=== PATIENT | female | born 1935 | race Caucasian/White ===

== ENCOUNTER 2018-04-23 07:55 | Emergency (ER) | payer MEDICARE ==
[~2018-04-23] VITALS: Ht 157.5 cm; Wt 56.7 kg
[~2018-04-23 07:55] MED LIST: ACETAMINOPHEN-1 EAC1 PO; ADVAIR 250-501 EACH IH; ALBUTEROL SULFATE; ALBUTEROL2.5 MG/31 IH; ALLER TEC PO; ALLERGY10 M1; AMLODIPINE BESYL5 MG; AMLODIPINE BESYL5 MG PO; B12 5,000 MCG1 EACH; BENADRYL25 MG; BENTYL 10 MG CA10 MG; BENTYL 10 MG CA10 MG PO; BENTYL10 MG PO; CALCIUM; CALCIUM 600 +1 EAC1 PO; CALCIUM 600+D1 EAC3 PO; CARAFATE 1 GM TA1 G1 PO; CELEXA20 MG PO; CENTRUM COMPLE1 EACH PO; CENTRUM TABLET1 EACH PO; CIPRO250 MG PO; CLARITIN10 MG PO; COLACE100 MG PO; DOXEPIN 10 MG C10 MG PO; FLAGYL500 MG PO; FLONASE 0.05%50 MCG INH; FLORANEX TABLE1 EACH PO; FLOVENT; KLONOPIN1 MG PO; KLOR-CON 10 ER10 MEQ; LEXAPRO 10 MG T10 M1 PO; LEXAPRO 10 MG T10 MG PO; LEXAPRO20 MG PO; LISINOPRIL5 MG PO; MACROBID 100 M100 M1; MACRODANTIN100 MG PO; METAMUCIL PAC1 UDPKT PO; MIRALAX255 GM PO; MYLAN; NASONEX17 GM NS; NEXIUM10 MG PO; NEXIUM40 MG; NEXIUM40 MG PO; NORCO 5-325 TA1 EACH PO; NORVASC 5 MG TAB5 MG; NORVASC 5 MG TAB5 MG PO; ONDANSETRON HCL4 M2 PO; OPCON-A EYE DRO15 M1; PANTOPRAZOLE SO40 M1 PO; PAROXETINE HCL10 MG; PHENERGAN 25 MG25 M1 PO; POTASSIUM; POTASSIUM GLUCONATE; POTASSIUM99 M1 PO; PREDNISONE50 MG PO; PROAIR HFA8.5 GM INH; PROBIOTIC ACID1 EACH PO; PROBIOTIC1 EAC1 PO; PROLIA60 MG/1 ML SQ; RANITIDINE 150150 MG; REMERON15 MG PO; SENNA PO; TRIAMTERENE-HC1 EAC1 PO; TRIAMTERENE/HCT1 CA1; TYLENOL325 MG PO; VENTOLIN HFA 1818 GM INH; VENTOLIN17 GM INH; VICODIN ES TAB1 EACH; VICODIN ES TAB1 EACH PO; VITAMIN B-12; VITAMIN B-12100 MCG PO; VITAMIN B-12500 MCG PO; VITAMIN B12 PO; VITAMIN D1000 UNI1 PO; VITAMIN D31000 UNI2 PO; XARELTO10 MG PO; ZANTAC 150MG T150 M1 PO; ZOFRAN4 MG PO; ZYRTEC PO; [UNRECOGNIZED DRUG - OTHER]; [UNRECOGNIZED DRUG - OTHER] NASAL
[2018-04-23] MEDS ORDERED: OMEPRAZOLE40 MG PO (08:10)
[2018-04-23] MEDS ORDERED: NORVASC5 MG PO (08:10)
[2018-04-23] MEDS ORDERED: PROZAC20 MG PO (08:11)
[2018-04-23] MEDS ORDERED: HYDROXYZINE HCL25 M1 PO (08:11)
[2018-04-23 08:47] LABS: ABSOLUTE BASOPHILS 0.1 thou/uL (0.0-0.2); ABSOLUTE EOSINOPHILS 0.1 thou/uL (0.0-0.7); ABSOLUTE LYMPHOCYTES 2.3 thou/uL (0.8-5.3); ABSOLUTE MONOCYTES 0.4 thou/uL (0.0-1.2); ABSOLUTE NEUTROPHILS 2.7 thou/uL (1.6-8.1); BASOPHILS 1.2 %; EOSINOPHILS 1.9 %; HEMATOCRIT 42.9 % (37.0-47.0); HEMOGLOBIN 14.2 gm/dL (12.0-15.0); LYMPHOCYTES 40.8 %; MCH 29.3 pg (26.0-34.0); MCHC 33.1 g/dL (28.0-37.0); MCV 88.5 fL (80.0-100.0); MONOCYTES 7.8 %; MPV 7.9 fl. (7.2-11.1); NUCLEATED RBCS 0 /100WBC; PLATELET COUNT* 250 thou/uL (150-400); POLYS 48.3 %; RBC 4.85 mil/uL (4.20-5.00); RDW-CV 14.5 % (10.5-14.5); WBC 5.5 thou/uL (4.0-11.0)
[2018-04-23 08:49] LABS: ANION GAP 5 mmol/L (7-16); BUN 16 mg/dL (7-18); CALCIUM 9.2 mg/dL (8.5-10.1); CHLORIDE 100 mmol/L (98-107); CO2 30 mmol/L (21-32); CREATININE 0.9 mg/dL (0.6-1.3); GLUCOSE 109 mg/dL (70-99); POTASSIUM 3.9 mmol/L (3.5-5.1); SODIUM 135 mmol/L (136-145)
[2018-04-23 08:52] LABS: APTT 26.6 Seconds (25.0-31.3); PROTIME 10.3 Seconds (9.20-11.50)
[2018-04-23 08:56] LABS: ALBUMIN 3.8 g/dL (3.4-5.0); ALKALINE PHOSPHATASE 86 U/L (46-116); LIPASE 132 U/L (73-393); SGOT 20 U/L (15-37); SGPT 22 U/L (30-65); TOTAL BILIRUBIN 0.5 mg/dL (<0.1-1.0); TOTAL PROTEIN 7.6 g/dL (6.4-8.2); TROPONIN-I LEVEL <0.06 ng/mL (<0.06)
[2018-04-23 09:23] LABS: URINE BILIRUBIN NEGATIVE (Negative); URINE BLOOD NEGATIVE (Negative); URINE CLARITY CLEAR; URINE COLOR YELLOW; URINE GLUCOSE-RANDOM NEGATIVE (Negative); URINE KETONES NEGATIVE (Negative); URINE LEUKOCYTES-REFLEX TRACE (Negative); URINE NITRITE-REFLEX NEGATIVE (Negative); URINE PROTEIN NEGATIVE (Negative); URINE SPECIFIC GRAVITY 1.015 (1.005-1.030); URINE UROBILINOGEN 0.2 E.U./dl (0.2-1.0)
[2018-04-23 09:32] LABS: SQUAMOUS 4-10 Moderate /LPF (0-3)
[2018-04-23 09:34] LABS: URINE RBC 0-2 Rare /HPF (0-2); URINE WBC-REFLEX 0-5 Rare /HPF (0-5)
[2018-04-23 09:35] LABS: MUCUS 0-3 Light strn/LPF (None Seen)
[2018-04-23 09:38] LABS: CASTS None Seen /LPF (None Seen); CRYSTALS None Seen /LPF (None Seen)
[2018-04-23] MEDS ORDERED: ZOFRAN ODT4 MG SUBLING (09:47)
[2018-04-23 09:57] VITALS: BP 159/60
--- NOTE | 2018-04-23 12:19 | EKG ---
[place] [address] ELECTROCARDIOGRAM REPORT Name: NICOL OROPEZA Room: [facility]#: [id number] Admission: 04/23/18 Attend Phys: Discharge: 04/23/18 Date of : 33 Report #: [id number] THIS REPORT FOR: //name// [facility] ED Test Date: 2018-04-23 Test Time: 08:14:35 Pat Name: NICOL JOHNNA Department: Room: Gender: F Brass Molder: : 1935 Requested By: Brian Nguyen Order Number: [id number] MD: Henok Velarde Measurements Intervals [place] Rate: 83 P: 95 ME: 208 QRS: 73 QRSD: 113 T: 85 QT: 387 QTc: 455 Interpretive Statements NSR, artifact likely Ventricular trigeminy Borderline intraventricular conduction delay RSR' in V1 or V2, right VCD or RVH Nonspecific T abnrm, anterolateral leads Artifact in lead(s) I,II,aVR,aVL,V1,V2,V3,V4,V5,V6 Compared to ECG 03/15/2016 14:26:46 Ventricular premature complex(es) now present Right ventricular hypertrophy now present RSR' in V1 or V2 now present Atrial flutter no longer present AV block, advanced (high-grade) no longer present Electronically Signed On 04-23-2018 12:19:19 MACHINE MAINTENANCE MECHANIC by Henok Velarde [email or web address] <ELECTRONICALLY SIGNED> By: Henok Velarde MD, FACC 04/23/18 1219 3 3 Henok Velarde MD, FACC /EPI
== END 2018-04-23 09:58 | disposition home or self-care (01) ==
LOC: M.ERS 07:55
PROVIDERS: Family Medicine
DX: R10.84 Generalized abdominal pain (principal); R19.7 Diarrhea, unspecified; J45.909 Unspecified asthma, uncomplicated; K58.9 Irritable bowel syndrome, unspecified; Z88.1 Allergy status to other antibiotic agents; Z88.2 Allergy status to sulfonamides; Z88.6 Allergy status to analgesic agent; Z88.8 Allergy status to other drugs, medicaments and biological substances; Z98.890 Other specified postprocedural states; Z90.49 Acquired absence of other specified parts of digestive tract; Z90.711 Acquired absence of uterus with remaining cervical stump

== ENCOUNTER → 2018-06-19 | Outpatient (CLI) | payer MEDICARE ==
[~2018-06-19] MED LIST changes: +HYDROXYZINE HCL25 M1 PO; +NORVASC5 MG PO; +OMEPRAZOLE40 MG PO; +PROZAC20 MG PO; +ZOFRAN ODT4 MG SUBLING
[2018-06-19 11:06] LABS: ABSOLUTE BASOPHILS 0.1 thou/uL (0.0-0.2); ABSOLUTE EOSINOPHILS 0.1 thou/uL (0.0-0.7); ABSOLUTE LYMPHOCYTES 1.6 thou/uL (0.8-5.3); ABSOLUTE MONOCYTES 0.4 thou/uL (0.0-1.2); BASOPHILS 0.9 %; EOSINOPHILS 2.2 %; HEMOGLOBIN 13.2 gm/dL (12.0-15.0); LYMPHOCYTES 26.3 %; MCH 29.5 pg (26.0-34.0); MCHC 32.9 g/dL (28.0-37.0); MCV 89.4 fL (80.0-100.0); MONOCYTES 6.3 %; MPV 7.4 fl. (7.2-11.1); NUCLEATED RBCS 0 /100WBC; PLATELET COUNT* 300 thou/uL (150-400); POLYS 64.3 %; RBC 4.48 mil/uL (4.20-5.00); RDW-CV 14.3 % (10.5-14.5); WBC 6.3 thou/uL (4.0-11.0)
[2018-06-19 11:17] LABS: CALCIUM 9.5 mg/dL (8.5-10.1); CREATININE 0.8 mg/dL (0.6-1.3); POTASSIUM 4.1 mmol/L (3.5-5.1); TOTAL BILIRUBIN 0.3 mg/dL (<0.1-1.0); TOTAL PROTEIN 7.8 g/dL (6.4-8.2)
[2018-06-19 12:34] LABS: ESR (SEDRATE) 6 mm/hr (0-30)
== END ==
LOC: M.LAB 10:42
PROVIDERS: Psychiatry & Neurology Neuromuscular Medicine
DX: G20 Parkinson's disease (principal); F32.9 Major depressive disorder, single episode, unspecified

== ENCOUNTER → 2018-06-19 | Outpatient (CLI) | payer MEDICARE | LOC: M.MRI 16:15 | DX: G31.9 Degenerative disease of nervous system, unspecified (principal); I67.82 Cerebral ischemia; G20 Parkinson's disease ==

== ENCOUNTER 2018-09-26 14:11 | Inpatient (IN) | payer MEDICARE ==
[~2018-09-26] VITALS: Ht 157.5 cm; Wt 57.6 kg
[2018-09-26] MEDS ORDERED: NEXIUM40 MG PO (14:28)
[2018-09-26] MEDS ORDERED: SINEMET 10-1001 EAC1 PO (14:29)
[2018-09-26] MEDS ORDERED: ONDANSETRON HCL4 M2 PO (14:29)
[2018-09-26 14:47] LABS: ABSOLUTE BASOPHILS 0.1 thou/uL (0.0-0.2); ABSOLUTE EOSINOPHILS 0.1 thou/uL (0.0-0.7); ABSOLUTE LYMPHOCYTES 1.8 thou/uL (0.8-5.3); ABSOLUTE MONOCYTES 0.6 thou/uL (0.0-1.2); ABSOLUTE NEUTROPHILS 4.3 thou/uL (1.6-8.1); BASOPHILS 0.9 %; EOSINOPHILS 1.6 %; HEMATOCRIT 42.4 % (37.0-47.0); HEMOGLOBIN 14.3 gm/dL (12.0-15.0); LYMPHOCYTES 26.4 %; MCH 29.1 pg (26.0-34.0); MCHC 33.7 g/dL (28.0-37.0); MCV 86.5 fL (80.0-100.0); MONOCYTES 8.2 %; MPV 7.7 fl. (7.2-11.1); NUCLEATED RBCS 0 /100WBC; PLATELET COUNT* 352 thou/uL (150-400); POLYS 62.9 %; RBC 4.91 mil/uL (4.20-5.00); RDW-CV 13.8 % (10.5-14.5); WBC 6.9 thou/uL (4.0-11.0)
[2018-09-26 14:56] LABS: APTT 26.6 Seconds (25.0-31.3); PROTIME 10.5 Seconds (9.20-11.50)
[2018-09-26 15:04] LABS: ANION GAP 14 mmol/L (7-16); BUN 31 mg/dL (7-18); CALCIUM 9.9 mg/dL (8.5-10.1); CHLORIDE 101 mmol/L (98-107); CO2 25 mmol/L (21-32); GLUCOSE 101 mg/dL (70-99); POTASSIUM 4.1 mmol/L (3.5-5.1); SODIUM 140 mmol/L (136-145); TROPONIN-I LEVEL <0.06 ng/mL (<0.06)
[2018-09-26 15:06] LABS: ALBUMIN 4.4 g/dL (3.4-5.0); ALKALINE PHOSPHATASE 98 U/L (46-116); NT-PRO BRAIN NAT PEPTIDE 259 pg/mL (<300); SGOT 34 U/L (15-37); SGPT 14 U/L (30-65); TOTAL BILIRUBIN 0.4 mg/dL (<0.1-1.0); TOTAL PROTEIN 8.5 g/dL (6.4-8.2)
[2018-09-26 15:31] LABS: URINE BLOOD NEGATIVE (Negative); URINE CLARITY CLEAR; URINE COLOR YELLOW; URINE GLUCOSE-RANDOM NEGATIVE (Negative); URINE KETONES 2+ (Negative); URINE LEUKOCYTES-REFLEX 1+ (Negative); URINE NITRITE-REFLEX NEGATIVE (Negative); URINE PROTEIN TRACE (Negative); URINE SPECIFIC GRAVITY >= 1.030 (1.005-1.030); URINE UROBILINOGEN 0.2 E.U./dl (0.2-1.0)
[2018-09-26 15:37] LABS: ICTOTEST (BILI CONFIRMATORY) Negative (Negative); URINE BILIRUBIN 1+ (Negative)
[2018-09-26 15:40] LABS: BE -4.6 mmol/L (-2 to +3); PCO2 36.1 mmHg (35.0-45.0); PO2 86.1 mmHg (75.0-100.0); pH 7.364 (7.340-7.450)
[2018-09-26 15:51] LABS: CRYSTALS None Seen /LPF (None Seen); FINE GRANULAR CASTS 0-3 Few /LPF (None Seen); MUCUS 0-3 Light strn/LPF (None Seen); SQUAMOUS 0-3 Few /LPF (0-3); URINE RBC 0-2 Rare /HPF (0-2); URINE WBC-REFLEX 6-15 Few /HPF (0-5)
[2018-09-26 16:53] VITALS: BP 167/43
[2018-09-26 17:15] VITALS: BP 163/58
--- NOTE | 2018-09-26 17:15 | NUR ---
ER ADMIT TO 229 TELEPHONE REPORT GIVEN PATIENT TO VIA CART ASSISTED TO BED ORIEMTED TO AND CALL LIGHT DENIES PAIN DAUGHTER AT BEDSIDE
[2018-09-26 20:00] VITALS: BP 157/49; BP 157/79
[2018-09-27] VITALS (8 sets, daily range): BP systolic 89–157; BP diastolic 33–106
--- NOTE | 2018-09-27 03:40 | NUR ---
PT ALERT ORIENTED. FORGETFUL. UP WITH STD BY ASSIST. STEADY GAIT. TELEMETRY SHOWS SR/ST. DENIES PAIN. ON RA. NS AT 100MLSLHR.
[2018-09-27 05:14] LABS: ABSOLUTE LYMPHOCYTES 1.2 thou/uL (0.8-5.3); ABSOLUTE MONOCYTES 0.1 thou/uL (0.0-1.2); ABSOLUTE NEUTROPHILS 5.2 thou/uL (1.6-8.1); BASOPHILS 0.2 %; HEMATOCRIT 38.2 % (37.0-47.0); HEMOGLOBIN 12.7 gm/dL (12.0-15.0); LYMPHOCYTES 18.7 %; MCH 28.9 pg (26.0-34.0); MCHC 33.2 g/dL (28.0-37.0); MCV 86.9 fL (80.0-100.0); MONOCYTES 1.1 %; MPV 9.5 fl. (7.2-11.1); NUCLEATED RBCS 0 /100WBC; RBC 4.39 mil/uL (4.20-5.00); RDW-CV 14.1 % (10.5-14.5); WBC 6.5 thou/uL (4.0-11.0)
[2018-09-27 05:25] LABS: PLATELET COUNT* 248 thou/uL (150-400)
[2018-09-27 05:27] LABS: ANION GAP 14 mmol/L (7-16); BUN 22 mg/dL (7-18); CALCIUM 8.9 mg/dL (8.5-10.1); CHLORIDE 106 mmol/L (98-107); CHOLESTEROL 215 mg/dL (<200); CO2 21 mmol/L (21-32); CREATININE 0.8 mg/dL (0.6-1.3); GLUCOSE 147 mg/dL (70-99); HDL CHOLESTEROL 58 mg/dL (>40); LDL CHOLESTEROL 150 mg/dL (<100); MAGNESIUM 1.7 mg/dL (1.8-2.4); POTASSIUM 4.2 mmol/L (3.5-5.1); SODIUM 141 mmol/L (136-145); TC:HDL 3.7 Ratio (Not establshd); TRIGLYCERIDE 39 mg/dL (<150); VLDL 8 mg/dL (<40)
[2018-09-27 05:35] LABS: SERUM ASSESSMENT Clear
--- NOTE | 2018-09-27 07:25 | NUR ---
CHANGE OF SHIFT BEDSIDE REPORT GIVEN PATIENT SEEN AT BEDSIDE IN BED ASLEEP ASSUMED PATIENT CARE
--- NOTE | 2018-09-27 11:02 | EKG ---
[place] [address] ELECTROCARDIOGRAM REPORT Name: NICOL OROPEZA Room: [address] ADM IN .R.#: [id number] Admission: 09/26/18 Attend Phys: Can Hill MD Discharge: Date of : 33 Report #: [id number] THIS REPORT FOR: //name// [facility] ED Test Date: 2018-09-26 Test Time: 14:25:37 Pat Name: NICOL OROPEZA Department: Room: [facility] Gender: F Bed Setter: : 1935 Requested By: Brian Nguyen Order Number: [id number] MD: Aditya Jerry Measurements Intervals [place] Rate: 97 P: 32 WV: 49 QRS: 19 QRSD: 104 T: 88 QT: 369 QTc: 469 Interpretive Statements Sinus rhythm Short WV interval Right atrial enlargement Artifact in lead(s) I,II,aVR,aVL,V1,V2,V3,V4 Compared to ECG 04/23/2018 08:14:35 Short WV interval now present Atrial abnormality now present Electronically Signed On 09-27-2018 11:02:30 CDT by Aditya Jerry [email or web address] <ELECTRONICALLY SIGNED> By: Aditya Jerry MD, [facility] 09/27/18 1102 1425 1425 Aditya Jerry MD, [facility] /EPI
--- NOTE | 2018-09-27 13:58 | NUR ---
MET WITH PT AND DTR/KETAN WHO IS DPOA TO DISCUSS HOME SITUATION/DC PLANNING. PT LIVES ALONE IN [place], DTR LIVES [place] AND IS SUPPORTIVE. DTR STATES PT IS 'ALONE ALOT' AND THEY ARE CONSIDERING MOVING. GAVE HER INDP SR HOUSING AND COMMUNITY INFO. DISCUSSED HH AND THEY ARE INTERESTED, CHOSE [facility]. WILL ARRANGE AT DC. PT IS INDEPENDENT, DOES LITTLE DRIVING. DTR OR FRIEND ASSIST WHEN SHE GOES SHOPPING. DTR STATED PT HAS HAD SOME MEMORY ISSUES OF LATE AND HAD HER MEDS 'MIXED UP' LAST WEEK. SHE HAS NEVER HAD HH OR BEEN TO SNF. CALLED AND FAXED INITIAL REFERRAL TO [facility]. WILL FOLLOW
[2018-09-28] VITALS: BP 144/43
--- NOTE | 2018-09-28 02:45 | NUR ---
RECIEVED REPORT AND ASSUMED CARE AT 1900. GRAVES REGISTRATION SPECIALIST IN PLACE. DISTOLIC BP SOFT OTHER THAN THAT VITAL SIGNS STABLE. PT UP WITH SBA. PT DENIES ANY PAIN AT THIS TIME. PT DID HAVE MOMENT OF CONFUSION DURING THE NIGHT SHE WAS SCARED THAT SOMEONE WAS GOING TO HURT HER. WHEN I WENT TO GIVE HER BEDTIME MEDS PT WOULD NOT TAKE THEM AT FIRST BECAUSE SHE THOUGHT WE WERE TRYING TO POISON HER. SO I ASSURED HER THAT I WOULD NEVER TRY TO HARM HER AND I SHOWED HER THE MED TO REASSURE HER OF THE MED. AND I TOLD HER I WOULD NOT LET ANYTHING HAPPEN TO HER. SHE TOOK MED BUT STILL SEEMED CONFUSED. PT CALLED DAUGHTER AND I TALKED TO HER ABOUT PTS CONFUSION. DAUGHTER DECIDED TO COME IN TO STAY WITH PT TO COMFORT HER. WHICH HELPED THE PT FEEL BETTER AND FINALLY WENT TO SLEEP. ASSESSMENT COMPLETED DISCUSED PLAN OF CARE AND PT UNDERSTANDS. BED LOCKED, ALARM ON AND CALL LIGHT WITHIN REACH. FALL PRECAUTIONS IN PLACE. HOURLY ROUNDING DONE AND ALL NEEDS MET. NURSING WILL CONTINUE TO MONITOR.
[2018-09-28 04:00] VITALS: BP 135/40
[2018-09-28 08:00] VITALS: BP 162/56
[2018-09-28 11:56] VITALS: BP 166/64
--- NOTE | 2018-09-28 11:56 | NUR ---
RECEIVED REPORT AND ASSUMED CARE OF PT AT 0730.PT IS A/OX3.CONFUSED AND FORGETFUL.TRACING SR ON THE MONITOR.ON RA.UP STAND BY.IV PATENT WITH FLUID INFUSING AT 50ML/HR.NO SKIN ISSUES.NO EDEMA AND PAIN.IV ANTIBIOTIC GIVEN PER ORDER.OT PT AND ORTHO ON CONSULTATION.CALL LIGHT AND FALL PRECAUTIONS IN PLACE.WILL CONTINUE TO MONITOR.
--- NOTE | 2018-09-28 13:43 | NUR ---
CONTINUE TO FOLLOW, MET WITH PT AND DTR. PT TEARFUL AND UPSET ABOUT BEING CONFUSED LAST EVENING. PLAN IS STILL FOR PT TO RETURN HOME AT DC WITH HH. DTR IS SUPPORTIVE. FEEL PT WILL DO BETTER IN HER OWN SURROUNDINGS. SPOKE WITH OT/BRAD RE: [facility]. PT WAS DC'D BY PT YESTERDAY AFTER AMBULATING 400' SBA. WILL FOLLOW
[2018-09-28 15:44] VITALS: BP 147/50
--- NOTE | 2018-09-28 18:02 | NUR ---
VSS.TRACING SR ON THE MONITOR.ON RA.IV PATENT WITH IV FLUIDS INFUSING.UP STAND BY .A/OX3.CONFUSED.ON GLORIA FALL PRECAUTION.NO COMPLAINTS OF PAIN.PT,OT SAW CONSULTED.SKIN INTACT.MEDS GIVEN WITH APPLE SAUCE.CALL LIGHT AND FALL PRECAUTIONS IN PLACE.WILL CONTINUE TO MONITOR.
--- NOTE | 2018-09-28 18:07 | NUR ---
I have reviewed the documentation by MARTHA AVELAR from 729 to 1807 and I concur with it.
[2018-09-28 20:00] VITALS: BP 108/63
[2018-09-29 01:15] VITALS: BP 181/64
--- NOTE | 2018-09-29 04:47 | NUR ---
PT ALERT ORIETNED TO SELF. CONFUSION INCREASES AT NOC. MELATONIN GIVEN FOR SLEEP. PT HAD FAST RESULTS. UP WITH WALKER AND STAND BY ASSIST. TELEMETRY SHOW SR.
[2018-09-29 05:19] LABS: HEMATOCRIT 37.7 % (37.0-47.0); HEMOGLOBIN 12.9 gm/dL (12.0-15.0); MCH 29.1 pg (26.0-34.0); MCHC 34.2 g/dL (28.0-37.0); MCV 85.1 fL (80.0-100.0); RBC 4.43 mil/uL (4.20-5.00); RDW-CV 14.2 % (10.5-14.5); WBC 5.8 thou/uL (4.0-11.0)
[2018-09-29 05:27] LABS: CALCIUM 9.3 mg/dL (8.5-10.1); CREATININE 0.7 mg/dL (0.6-1.3); MAGNESIUM 1.8 mg/dL (1.8-2.4); POTASSIUM 3.3 mmol/L (3.5-5.1)
[2018-09-29 08:00] VITALS: BP 147/51
--- NOTE | 2018-09-29 10:17 | NUR ---
RECEIVED REPORT AND ASSUMED CARE OF PT AT 0730.PT IS A/OX3.CONFUSED BUT VERY CALM AND COOPERATIVE.TRACING SR ON THE MONITOR.ON RA.IV PATENT AND SALINE ANTIBIOTIC.IV ANTIBIOTIC GIVEN PER ORDER.UP WITH ASSIST.ON FALL PRECAUTION.VSS.CLEAR DIMINISHED LUNGS.BA YESTERDAY.NO COMPLAINTS OF PAIN.NO SKIN ISSUES.CALL LIGHT AND FALL PRECAUTIONS IN PLACE .WILL CONTINUE TO MONITOR.
[2018-09-29] MEDS ORDERED: PLAVIX 75 MG TA75 M1 PO (12:19)
[2018-09-29] MEDS ORDERED: FLOVENT HFA 4444 MCG INH (12:19)
[2018-09-29] MEDS ORDERED: LIPITOR 20 MG T20 M1 PO (12:19)
[2018-09-29] MEDS ORDERED: VENTOLIN HFA 1818 GM INH (12:19)
[2018-09-29] MEDS ORDERED: SEROQUEL 25 MG25 M1 PO (12:20)
--- NOTE | 2018-09-29 12:36 | NUR ---
ORDERS NOTED FOR DC WITH HH. MET WITH PT AND DTR, STILL WANT TO USE [facility] BUT DO NOT WANT TO START UNTIL . PT TO GO TO SON'S HOME THIS WEEKEND AND HAS DR ZAFAR TUESDAY. DTR TO STAY WITH PT TUE/TUE. CALLED AND FAXED ORDERS TO [facility].
[2018-09-29 12:59] VITALS: BP 137/106
--- NOTE | 2018-09-29 13:18 | NUR ---
PT OK TO DISCHARGE.DISCHARGE PAPER WORK COMPLETED.DISCHARGE PAPER WORK COMPLETED.EDUCATION GIVEN ON FOLLOW UP AND NEW SCRIPTS.IV AND HEART MONITOR TAKEN OUT.HEART MONITOR RETURNED TO NURSING STATION.ALL PERSONAL BELONGINGS HANDED OVER TO PT.PT WHEELED TO HER CAR BY ADULT NEUROLOGIST WITH HER DAUGHTER.
--- NOTE | 2018-09-29 13:46 | NUR ---
I have reviewed the documentation by MARTHA AVELAR from [id number] to 0750 and I concur with it.
== END 2018-09-29 13:48 | disposition home health service (06) | DRG 56 ==
LOC: M.ERS 14:11 → M.TBA-ER 15:57 → M.2W 15:57
PROVIDERS: Family Medicine; ADMIT Family Medicine
DX: G20 Parkinson's disease (principal); R65.11 Systemic inflammatory response syndrome (SIRS) of non-infectious origin with acute organ dysfunction; M87.852 Other osteonecrosis, left femur; Z96.649 Presence of unspecified artificial hip joint; E86.0 Dehydration; N18.3 Chronic kidney disease, stage 3 (moderate); K58.9 Irritable bowel syndrome, unspecified; E83.42 Hypomagnesemia; E78.5 Hyperlipidemia, unspecified; J45.30 Mild persistent asthma, uncomplicated; K57.90 Diverticulosis of intestine, part unspecified, without perforation or abscess without bleeding; I25.10 Atherosclerotic heart disease of native coronary artery without angina pectoris; Z90.49 Acquired absence of other specified parts of digestive tract; Z90.710 Acquired absence of both cervix and uterus; Z98.49 Cataract extraction status, unspecified eye; Z88.6 Allergy status to analgesic agent; Z88.1 Allergy status to other antibiotic agents; Z88.8 Allergy status to other drugs, medicaments and biological substances; Z82.49 Family history of ischemic heart disease and other diseases of the circulatory system; Z83.3 Family history of diabetes mellitus; R41.0 Disorientation, unspecified

== ENCOUNTER → 2019-01-18 | Outpatient (CLI) | payer MEDICARE ==
[~2019-01-18] MED LIST changes: +FLOVENT HFA 4444 MCG INH; +LIPITOR 20 MG T20 M1 PO; +PLAVIX 75 MG TA75 M1 PO; +SEROQUEL 25 MG25 M1 PO; +SINEMET 10-1001 EAC1 PO
[2019-01-18 17:17] LABS: ABSOLUTE BASOPHILS 0.1 thou/uL (0.0-0.2); ABSOLUTE EOSINOPHILS 0.2 thou/uL (0.0-0.7); ABSOLUTE LYMPHOCYTES 1.9 thou/uL (0.8-5.3); ABSOLUTE MONOCYTES 0.4 thou/uL (0.0-1.2); ABSOLUTE NEUTROPHILS 1.9 thou/uL (1.6-8.1); BASOPHILS 1.2 %; EOSINOPHILS 5.3 %; HEMATOCRIT 37.9 % (37.0-47.0); HEMOGLOBIN 12.4 gm/dL (12.0-15.0); LYMPHOCYTES 42.2 %; MCH 28.5 pg (26.0-34.0); MCHC 32.6 g/dL (28.0-37.0); MCV 87.5 fL (80.0-100.0); MONOCYTES 8.9 %; MPV 7.8 fl. (7.2-11.1); NUCLEATED RBCS 0 /100WBC; PLATELET COUNT* 265 thou/uL (150-400); POLYS 42.4 %; RBC 4.34 mil/uL (4.20-5.00); RDW-CV 14.1 % (10.5-14.5); WBC 4.4 thou/uL (4.0-11.0)
[2019-01-18 17:31] LABS: ALBUMIN 3.9 g/dL (3.4-5.0); CALCIUM 9.2 mg/dL (8.5-10.1); POTASSIUM 3.7 mmol/L (3.5-5.1); TOTAL BILIRUBIN 0.2 mg/dL (<0.1-1.0); TOTAL PROTEIN 7.6 g/dL (6.4-8.2)
== END ==
LOC: M.LAB 16:42
PROVIDERS: Internal Medicine Gastroenterology
DX: K62.5 Hemorrhage of anus and rectum (principal)